=== PATIENT | male | born 1965 | race Caucasian/White ===

== ENCOUNTER 2023-10-30 15:02 | Emergency (ER) | payer BC ==
[~2023-10-30] VITALS: Ht 193 cm; Wt 96.2 kg
[2023-10-30 15:29] VITALS: BP 172/113; PULSE 97; RESP 18; TEMP 99.4; O2SAT 99
[2023-10-30] MEDS ORDERED: DECADRON ONE (15:32)
[2023-10-30] MEDS ORDERED: BENADRYL ONE (15:32)
[2023-10-30] MEDS ORDERED: PEPCID IV ONE (15:32)
[2023-10-30 15:39] LABS: BASOPHIL % 0.4 % (0.0-0.2); EOSINOPHIL % 0.5 % (0.0-5.0); HEMATOCRIT(ML) 34.1 % (37.0-53.0); HEMOGLOBIN 11.9 g/dL (13.9-16.3); LYMPHOCYTES # 1.25 10^3/uL1 (1.0-4.8); LYMPHOCYTES % 16.3 % (24.0-44.0); MEAN CORP HGB 34.6 pg (26-34); MEAN CORP HGB CONCENTRATION 34.9 g/dL (33-36.5); MEAN CORP VOLUME 99.1 fL (78-100); MONOCYTES # 0.7 10^3/uL (0.3-0.8); MONOCYTES % 8.5 % (5.0-12.0); NEUTROPHIL # 5.7 10^3/uL (1.8-7.7); NEUTROPHILS % 73.9 % (41.0-85.0); PLATELET COUNT 122 10^3/uL (150-400); RED BLOOD CELL 3.44 10^6/uL (4.50-5.90); RED CELL DISTRIBUTION WIDTH 14.3 % (11.5-14.5); WHITE BLOOD CELL 7.7 10^3/uL (4.5-11.0)
[2023-10-30 15:42] LABS: +ADD MANUAL DIFF(NO CHRG) NO
[2023-10-30] MEDS: BENADRYL IV STA (15:43)
[2023-10-30] MEDS: PEPCID IV STA (15:43)
[2023-10-30] MEDS: DECADRON IV STA (15:43)
[2023-10-30 15:56] LABS: ALBUMIN(ML) 3.8 g/dL (3.4-5.0); ALBUMIN/GLOBULIN RATIO 0.926; ANION GAP 16.2; BUN/CREATININE RATIO 18.18 (10.0-20.0); CALCIUM 8.9 mg/dL (8.4-10.5); CREATININE SERUM 1.43 mg/dL (0.59-1.40); EST GFR, NON-AA 50.4 (>/=60); POTASSIUM 3.2 mmol/L (3.6-5.2)
[2023-10-30 16:30] VITALS: BP 147/92; PULSE 87; RESP 18; TEMP 99.4; O2SAT 99
[2023-10-30] MEDS ORDERED: NS 1000ML 1,000 ML ONE (16:39)
[2023-10-30] MEDS: NS 1000ML 1,000 ML STA (16:41)
[2023-10-30 17:04] LABS: CORO 229E NotDetected (NotDetected); CORO HKU1 NotDetected (NotDetected); CORO OC43 NotDetected (NotDetected)
[2023-10-30 17:05] LABS: RHINOVIRUS/ ENTEROVIRUS NotDetected (NotDetected); SARS CoV 2 NotDetected (NotDetected)
[2023-10-30 17:10] VITALS: BP 175/102; PULSE 82; RESP 18; TEMP 99.4; O2SAT 99
[2023-10-30] MEDS ORDERED: EPINEPHRINE ONE (22:00)
[2023-10-30] MEDS ORDERED: ZEMURON IV ONE (22:00)
[2023-10-30] MEDS ORDERED: CALCIUM CHLORIDE IV ONE (22:00)
[2023-10-30] MEDS ORDERED: SODIUM BICARBONATE IV ONE (22:00)
== END 2023-10-30 17:56 ==
LOC: ER 15:02
DX: T78.3XXA Angioneurotic edema, initial encounter (principal); I46.9 Cardiac arrest, cause unspecified; I10 Essential (primary) hypertension; Z20.822 Contact with and (suspected) exposure to COVID-19
CPT/HCPCS: 99291; 92950; 96374; 70491; 87637; 96361; 96375; 99292; 80053; 85025; 36415; 87070; 87880; J3490 ×4; J7030; J1200; J0171; J1100; Q9965